=== PATIENT | female | born 1950 | race Caucasian/White ===

== ENCOUNTER 2021-03-12 08:16 | Day surgery (SDC) | payer MEDICARE, OTHER ==
[2021-03-12] MEDS ORDERED: Dexamethasone 4 MG/ML SDV IV ONE (08:17)
[2021-03-12] MEDS ORDERED: Midazolam 1 MG/ML 2 ML SDV IV ONE (08:17)
[2021-03-12] MEDS ORDERED: Sodium Chloride 0.9% 10 ML Syringe IV ONE (08:17)
[2021-03-12] MEDS ORDERED: Ondansetron 4 MG/2 ML SDV IVPUSH PRN (08:30)
[2021-03-12] MEDS ORDERED: Moxifloxacin 0.5% Ophth Soln 3 ML Bottle EYELF ONE (08:30)
[2021-03-12] MEDS ORDERED: Acetaminophen 325 MG Tab PO PRN (08:30)
[2021-03-12] MEDS ORDERED: Proparacaine 0.5% Ophth Soln 15 ML Bottle EYELF ONE (08:30)
[2021-03-12] MEDS ORDERED: Timolol Maleate 0.5% Ophth Soln 5 ML Bottle EYELF ONE (08:30)
[2021-03-12] MEDS ORDERED: Acetaminophen/Codeine 300-30 MG Tab PO PRN (08:30)
[2021-03-12] MEDS ORDERED: Povidone-Iodine 5% Sterile Ophth Soln 30 ML Bottle EYELF ONE ×2 (08:30→09:34)
[2021-03-12] MEDS ORDERED: Cataract Ophth Solution EYELF ONE (08:30)
[2021-03-12] MEDS ORDERED: Tropicamide 1% Ophth Soln 15 ML Bottle EYELF ONE (08:30)
[2021-03-12] MEDS ORDERED: Phenylephrine 10% Ophth Soln 5 ML Bot EYELF ONE (08:30)
[2021-03-12] MEDS ORDERED: Apraclonidine 0.5% Ophth Soln 5 ML Bot EYELF ONE (09:34)
[2021-03-12] MEDS ORDERED: Tetracaine HCl/PF 0.5% 4 ML Bottle EYELF ONE (09:34)
[2021-03-12] MEDS ORDERED: Lidocaine 1% 30 ML SDV ONE (09:34)
[2021-03-12] MEDS ORDERED: Diclofenac Sodium 0.1% Ophth Soln 5 ML Bottle EYELF ONE (09:34)
[2021-03-12] MEDS ORDERED: Dexamethasone/Neomycin/Polymyxin B Ophth Oint 3.5 GM Tube EYELF ONE (09:34)
[2021-03-12] MEDS ORDERED: Chondroitin Sulfate/Hyaluronate Sodium Ophth Inj 0.75 ML Syringe EYELF ONE (09:35)
[2021-03-12] MEDS ORDERED: Vancomycin 500 MG SDV EYELF ONE (09:35)
[2021-03-12] MEDS ORDERED: Balanced Salt Solution Ophth Irrig 500 ML Bottle IOCULAR ONE (09:35)
[2021-03-12 12:00] VITALS: BP 121/51; PULSE 72
== END 2021-03-12 10:44 | disposition home or self-care (01) ==
LOC: DL.SDS 08:16
PROVIDERS: ATTEND Ophthalmology
DX: H25.812 Combined forms of age-related cataract, left eye (principal); I12.9 Hypertensive chronic kidney disease with stage 1 through stage 4 chronic kidney disease, or unspecified chronic kidney disease; N18.9 Chronic kidney disease, unspecified; G47.33 Obstructive sleep apnea (adult) (pediatric); J44.9 Chronic obstructive pulmonary disease, unspecified; Z98.890 Other specified postprocedural states; Z90.49 Acquired absence of other specified parts of digestive tract; Z86.73 Personal history of transient ischemic attack (TIA), and cerebral infarction without residual deficits; Z79.82 Long term (current) use of aspirin; Z79.899 Other long term (current) drug therapy
CPT/HCPCS: 00142; 66984; A9270; J1100; J2250; J3370; V2632

== ENCOUNTER 2021-03-26 08:12 | Day surgery (SDC) | payer MEDICARE, OTHER ==
[~2021-03-26 08:12] MED LIST: Proparacaine 0.5% Ophth Soln 15 ML Bottle ONE
[2021-03-26] MEDS ORDERED: Sodium Chloride 0.9% 10 ML Syringe IV ONE (08:13)
[2021-03-26] MEDS ORDERED: Midazolam 1 MG/ML 2 ML SDV IV ONE (08:13)
[2021-03-26] MEDS ORDERED: Dexamethasone 4 MG/ML SDV IV ONE (08:13)
[2021-03-26] MEDS ORDERED: Cataract Ophth Solution EYERT ONE (08:30)
[2021-03-26] MEDS ORDERED: Acetaminophen 325 MG Tab PO PRN (08:30)
[2021-03-26] MEDS ORDERED: Moxifloxacin 0.5% Ophth Soln 3 ML Bottle EYERT ONE (08:30)
[2021-03-26] MEDS ORDERED: Acetaminophen/Codeine 300-30 MG Tab PO PRN (08:30)
[2021-03-26] MEDS ORDERED: Phenylephrine 10% Ophth Soln 5 ML Bot EYERT ONE (08:30)
[2021-03-26] MEDS ORDERED: Timolol Maleate 0.5% Ophth Soln 5 ML Bottle EYERT ONE (08:30)
[2021-03-26] MEDS ORDERED: Proparacaine 0.5% Ophth Soln 15 ML Bottle EYERT ONE (08:30)
[2021-03-26] MEDS ORDERED: Ondansetron 4 MG/2 ML SDV IVPUSH PRN (08:30)
[2021-03-26] MEDS ORDERED: Tropicamide 1% Ophth Soln 15 ML Bottle EYERT ONE (08:30)
[2021-03-26] MEDS ORDERED: Sodium Chloride 0.9% 10 ML Syringe FLUSH PRN (08:30)
[2021-03-26] MEDS ORDERED: Povidone-Iodine 5% Sterile Ophth Soln 30 ML Bottle EYERT ONE ×2 (08:30→09:46)
[2021-03-26] MEDS ORDERED: Apraclonidine 0.5% Ophth Soln 5 ML Bot EYERT ONE (09:46)
[2021-03-26] MEDS ORDERED: Lidocaine 1% 30 ML SDV ONE (09:46)
[2021-03-26] MEDS ORDERED: Tetracaine HCl/PF 0.5% 4 ML Bottle EYERT ONE (09:46)
[2021-03-26] MEDS ORDERED: Diclofenac Sodium 0.1% Ophth Soln 5 ML Bottle EYERT ONE (09:46)
[2021-03-26] MEDS ORDERED: Vancomycin 500 MG SDV EYERT ONE (09:47)
[2021-03-26] MEDS ORDERED: Balanced Salt Solution Ophth Irrig 500 ML Bottle IOCULAR ONE (09:47)
[2021-03-26] MEDS ORDERED: Dexamethasone/Neomycin/Polymyxin B Ophth Oint 3.5 GM Tube EYERT ONE (09:47)
[2021-03-26] MEDS ORDERED: Chondroitin Sulfate/Hyaluronate Sodium Ophth Inj 0.75 ML Syringe EYERT ONE (09:47)
[2021-03-27 10:12] VITALS: BP 133/89; PULSE 51
== END 2021-03-26 10:45 | disposition home or self-care (01) ==
LOC: DL.SDS 08:12
PROVIDERS: ATTEND Ophthalmology
DX: H25.811 Combined forms of age-related cataract, right eye (principal); I12.9 Hypertensive chronic kidney disease with stage 1 through stage 4 chronic kidney disease, or unspecified chronic kidney disease; N18.9 Chronic kidney disease, unspecified; G47.33 Obstructive sleep apnea (adult) (pediatric); M85.80 Other specified disorders of bone density and structure, unspecified site; Z90.49 Acquired absence of other specified parts of digestive tract; Z98.890 Other specified postprocedural states; Z86.73 Personal history of transient ischemic attack (TIA), and cerebral infarction without residual deficits; Z79.82 Long term (current) use of aspirin; Z79.899 Other long term (current) drug therapy
CPT/HCPCS: A9270-GY; J1100; J2250; J3370; V2632

== ENCOUNTER 2023-05-28 23:09 | Emergency (ER) | payer MEDICARE, OTHER ==
[2023-05-28 23:46] LABS: BASOPHILS PERCENT AUTO 0.2 % (0.0-1.0); EOSINOPHILS PERCENT AUTO 1.1 % (1.0-3.0); HEMATOCRIT 35.2 % (37.0-47.0); HEMOGLOBIN 11.5 g/dL (12.0-16.0); LYMPHOCYTES PERCENT AUTO 8.5 % (20.5-50.1); MEAN CORPUSCULAR HEMOGLOBIN 30.8 pg (27.0-34.0); MEAN CORPUSCULAR HGB CONC 32.7 g/dL (33.0-35.0); MEAN CORPUSCULAR VOLUME 94.4 fL (80-100); MONOCYTES PERCENT AUTO 5.5 % (2-8); NEUTROPHILS PERCENT AUTO 84.7 % (42.2-75.2); PLATELET COUNT,PLT 168 10^3/uL (150-450); RED BLOOD CELL COUNT 3.73 10^6/uL (4.2-5.4); WHITE BLOOD CELL COUNT,WBC 9.7 10^3/uL (5.0-10.0)
[2023-05-28 23:54] LABS: APPEARANCE,URINE CLEAR (CLEAR); BILIRUBIN,URINE NEGATIVE (NEGATIVE); COLOR,URINE YELLOW (YELLOW); GLUCOSE,URINE NEGATIVE (NEGATIVE); KETONES,URINE 15 (NEGATIVE); LEUKOCYTE ESTERASE,URINE NEGATIVE (NEGATIVE); NITRITE,URINE NEGATIVE (NEGATIVE); OCCULT BLOOD,URINE NEGATIVE (NEGATIVE); PH,URINE 7.5 (5.0-9.0); PROTEIN,URINE 30 (NEGATIVE)
[2023-05-28 23:59] LABS: AMPHETAMINES,URINE NEGATIVE (NEGATIVE); BARBITURATES,URINE NEGATIVE (NEGATIVE); BENZODIAZEPINE,URINE NEGATIVE (NEGATIVE); MDMA (ECSTASY), URINE NEGATIVE (NEGATIVE); METHADONE,URINE NEGATIVE (NEGATIVE); METHAMPHETAMINES,URINE NEGATIVE (NEGATIVE); OPIATES,URINE NEGATIVE (NEGATIVE); OXYCODONE,URINE NEGATIVE (NEGATIVE); PHENCYCLIDINE,URINE NEGATIVE (NEGATIVE); TCA,URINE NEGATIVE (NEGATIVE)
[2023-05-29 00:01] LABS: ANION GAP 18.7 mEq/L (7-13); BLOOD UREA NITROGEN,BUN 17 mg/dL (7-18); CALCIUM 8.3 mg/dL (8.5-10.1); CARBON DIOXIDE,CO2 21 mmol/L (21-32); CHLORIDE,CL 105 mmol/L (98-107); CREATININE 1.13 mg/dL (0.55-1.02); EST CRCL DRUG DOSING (CG) 37.15 mL/min; GLUCOSE RANDOM 140 mg/dL (70-99); MAGNESIUM 1.4 mg/dL (1.8-2.4); POTASSIUM,K 3.7 mmol/L (3.5-5.1); SODIUM,NA 141 mmol/L (136-145)
[2023-05-29 00:02] LABS: AMORPHOUS SEDIMENT,URINE FEW /HPF (NOT SEEN); BACTERIA,URINE FEW /HPF (0-FEW/HPF); EPITHELIAL CELLS,URINE FEW /HPF (NOT SEEN); MUCUS,URINE MODERATE /LPF (NOT SEEN); RBC,URINE 0-5 /HPF (0-5); WBC,URINE 0-5 /HPF (0-5/HPF)
[2023-05-29 00:03] LABS: ESTIMATED GFR 51 mL/min (>=60); ETHANOL BLOOD MEDICAL < 3 mg/dL (0)
[2023-05-29] MEDS: Sodium Chloride 0.9% 10 ML Syringe FLUSH PRN (00:19)
[2023-05-29 01:52] VITALS: BP 119/62; PULSE 65
[2023-05-29] MEDS: Acetaminophen 325 MG Tab PO ONE (01:53)
== END 2023-05-29 02:25 | disposition home or self-care (01) ==
LOC: DL.ED 23:09
DX: A08.4 Viral intestinal infection, unspecified (principal); G93.41 Metabolic encephalopathy; I10 Essential (primary) hypertension; M19.90 Unspecified osteoarthritis, unspecified site; Z79.82 Long term (current) use of aspirin; Z79.899 Other long term (current) drug therapy; Z90.49 Acquired absence of other specified parts of digestive tract; Z90.710 Acquired absence of both cervix and uterus
CPT/HCPCS: 36415; 70450; 80048; 80305; 80307; 81001; 82140; 83735; 85025; 99285; A9270; 93010; 99284; J3490

== ENCOUNTER 2023-06-01 07:15 | Emergency (ER) | payer MEDICARE, OTHER ==
[2023-06-01] MEDS: Sodium Chloride 0.9% 10 ML Syringe FLUSH PRN (07:40)
[2023-06-01 07:46] VITALS: BP 129/46; PULSE 58
[2023-06-01] MEDS: Sodium Chloride 0.9% 1,000 ML IV ONE (07:59)
[2023-06-01 08:06] LABS: BASOPHILS PERCENT AUTO 0.1 % (0.0-1.0); EOSINOPHILS PERCENT AUTO 1.1 % (1.0-3.0); HEMATOCRIT 38.9 % (37.0-47.0); HEMOGLOBIN 12.3 g/dL (12.0-16.0); LYMPHOCYTES PERCENT AUTO 14.6 % (20.5-50.1); MEAN CORPUSCULAR HEMOGLOBIN 30.4 pg (27.0-34.0); MEAN CORPUSCULAR HGB CONC 31.6 g/dL (33.0-35.0); NEUTROPHILS PERCENT AUTO 74.2 % (42.2-75.2); PLATELET COUNT,PLT 157 10^3/uL (150-450); RED BLOOD CELL COUNT 4.05 10^6/uL (4.2-5.4); WHITE BLOOD CELL COUNT,WBC 8.1 10^3/uL (5.0-10.0)
[2023-06-01 08:29] LABS: ALBUMIN 2.9 g/dL (3.4-5.0); ANION GAP 12.3 mEq/L (7-13); BILIRUBIN TOTAL 0.4 mg/dL (0.2-1.0); CALCIUM 7.1 mg/dL (8.5-10.1); CREATININE 1.16 mg/dL (0.55-1.02); EST CRCL DRUG DOSING (CG) 40.75 mL/min; POTASSIUM,K 4.3 mmol/L (3.5-5.1); PROTEIN TOTAL,TP 6.3 g/dL (6.4-8.2)
[2023-06-01 08:30] LABS: A/G RATIO 0.85
[2023-06-01 09:27] LABS: APPEARANCE,URINE CLEAR (CLEAR); BILIRUBIN,URINE NEGATIVE (NEGATIVE); COLOR,URINE YELLOW (YELLOW); GLUCOSE,URINE NEGATIVE (NEGATIVE); KETONES,URINE NEGATIVE (NEGATIVE); LEUKOCYTE ESTERASE,URINE NEGATIVE (NEGATIVE); NITRITE,URINE NEGATIVE (NEGATIVE); OCCULT BLOOD,URINE TRACE-INTACT (NEGATIVE); PROTEIN,URINE 30 (NEGATIVE); UROBILINOGEN,URINE 0.2 mg/dL (0.2-1.0)
[2023-06-01 09:34] LABS: EPITHELIAL CELLS,URINE FEW /HPF (NOT SEEN); HYALINE CASTS,URINE FEW; MUCUS,URINE FEW /LPF (NOT SEEN)
[2023-06-01 09:35] LABS: AMORPHOUS SEDIMENT,URINE FEW /HPF (NOT SEEN); BACTERIA,URINE RARE /HPF (0-FEW/HPF); RBC,URINE 0-5 /HPF (0-5); WBC,URINE 0-5 /HPF (0-5/HPF)
== END 2023-06-01 10:30 | disposition home or self-care (01) ==
LOC: DL.ED 07:15
DX: A08.4 Viral intestinal infection, unspecified (principal); I12.9 Hypertensive chronic kidney disease with stage 1 through stage 4 chronic kidney disease, or unspecified chronic kidney disease; N18.9 Chronic kidney disease, unspecified; Z86.73 Personal history of transient ischemic attack (TIA), and cerebral infarction without residual deficits; Z79.82 Long term (current) use of aspirin; Z79.899 Other long term (current) drug therapy; Z90.49 Acquired absence of other specified parts of digestive tract; Z90.710 Acquired absence of both cervix and uterus
CPT/HCPCS: 36415; 80053; 81001; 83605; 85025; 93005; 99284; J7030; J3490

== ENCOUNTER 2023-07-15 07:18 | Day surgery (SDC) | payer MEDICARE, OTHER, MEDICAID ==
[~2023-07-15 07:18] MED LIST changes: +Midazolam 1 MG/ML 2 ML SDV ONE; -Proparacaine 0.5% Ophth Soln 15 ML Bottle ONE; +fentaNYL 100 MCG/2 ML SDV ONE
[2023-07-15] MEDS ORDERED: fentaNYL 100 MCG/2 ML SDV IV ONE (07:19)
[2023-07-15] MEDS ORDERED: Midazolam 1 MG/ML 2 ML SDV IV ONE (07:19)
[2023-07-15] MEDS: Dextrose 5%-0.45% NaCl 1,000 ML IV SCH (07:50)
[2023-07-15] MEDS: fentaNYL 100 MCG/2 ML SDV IV ONE ×2 (08:36→08:37)
[2023-07-15] MEDS: Midazolam 1 MG/ML 2 ML SDV IV ONE ×4 (08:37→08:47)
[2023-07-15] MEDS: Sodium Chloride 0.9% 1,000 ML IV SCH (09:20)
[2023-07-15 16:15] VITALS: BP 105/60; PULSE 64
== END 2023-07-15 11:00 | disposition home or self-care (01) ==
LOC: DL.ENDO 07:18
PROVIDERS: ATTEND Internal Medicine Gastroenterology
DX: D12.0 Benign neoplasm of cecum (principal); K59.09 Other constipation; Q43.8 Other specified congenital malformations of intestine; I12.9 Hypertensive chronic kidney disease with stage 1 through stage 4 chronic kidney disease, or unspecified chronic kidney disease; N18.9 Chronic kidney disease, unspecified; I63.9 Cerebral infarction, unspecified; E78.5 Hyperlipidemia, unspecified; G47.33 Obstructive sleep apnea (adult) (pediatric)
CPT/HCPCS: 45385; 88305; J2250; J3010; J7030; J7042